=== PATIENT | female | born 1990 | race Two or more races ===

== ENCOUNTER 2021-03-19 09:37 | Emergency (ER) | payer MEDICAID, OTHER ==
[~2021-03-19] VITALS: Ht 167.6 cm; Wt 140.2 kg
[2021-03-19] MEDS ORDERED: HYDROcodone-ACET 10/325MG TAB PO ONE (09:45)
[2021-03-19] MEDS ORDERED: ONDANSETRON ODT 4 MG TAB PO ONE (09:45)
[2021-03-19 10:44] LABS: Basophils # (auto) 0.1 10 ^3/uL (0-0.2); Eosinophils # (auto) 0.2 10 ^3/uL (0-0.8); Eosinophils % (auto) 2.1 % (0.0-7.0); Hematocrit 41.7 % (36.0-46.0); Hemoglobin 13.9 g/dL (12.2-16.2); Lymphocytes # (auto) 1.3 10 ^3/uL (0.4-5.4); Lymphocytes % (auto) 13.2 % (10.0-50.0); Mean Corpuscular Hemoglobin 30.6 pg (28.0-32.0); Mean Corpuscular Hgb Conc. 33.2 g/dL (32.0-36.0); Mean Corpuscular Volume 92.1 fL (80.0-100.0); Monocytes # (auto) 0.6 10 ^3/uL (0-1.3); Monocytes % (auto) 5.7 % (0.0-12.0); Neutrophils # (auto) 7.6 10 ^3/uL (1.6-8.6); Red Blood Cells 4.53 10^6/uL (4.0-5.20); Red Cell Distribution Width 13.2 % (11.8-14.3); White Blood Cell 9.7 10^3/uL (4.4-10.8)
[2021-03-19 10:59] LABS: Albumin 3.7 g/dL (3.4-5.0)
[2021-03-19 11:03] LABS: BUN/Creatinine Ratio 8.1; Bilirubin, Total 0.4 mg/dL (0.2-1.0)
[2021-03-19] MEDS ORDERED: ONDA-144 PO (11:03)
[2021-03-19] MEDS ORDERED: PANT40TA2 PO (11:03)
[2021-03-19 12:34] VITALS: BP 135/71
== END 2021-03-19 12:35 | disposition home or self-care (01) ==
LOC: ER 09:37
DX: K62.5 Hemorrhage of anus and rectum (principal); R10.30 Lower abdominal pain, unspecified; Z90.49 Acquired absence of other specified parts of digestive tract; Z88.8 Allergy status to other drugs, medicaments and biological substances
CPT/HCPCS: 36415; 74176; 80053; 85025; 99284; Q0162